=== PATIENT | female | born 2000 | race Two or more races ===

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

== ENCOUNTER 2022-03-13 20:08 | Emergency (ER) | payer MEDICAID ==
[~2022-03-13] VITALS: Ht 144.8 cm; Wt 52.7 kg
[2022-03-13 21:00] VITALS: BP 120/95
== END 2022-03-14 01:26 | disposition left against medical advice (07) ==
LOC: ER 20:11
DX: Z48.01 Encounter for change or removal of surgical wound dressing (principal); Z53.21 Procedure and treatment not carried out due to patient leaving prior to being seen by health care provider